=== PATIENT | male | born 1955 | race Caucasian/White ===

== ENCOUNTER 2023-11-18 13:57 | Emergency (ER) | payer MEDICARE, SELFPAY ==
[2023-11-18 14:05] VITALS: BP 128/87
--- NOTE | 2023-11-18 14:09 | ED.PDOC.TRB ---
ED Provider Triage
-
A medical screening examination has been initiated by a qualified medical provider. Based on the assessment performed at this time, it has been determined that an emergent medical condition may exist and the patient has been informed that further
medical evaluation and possible additional diagnostic testing may be needed.
HPI: This is a medical evaluation conducted in person to initiate diagnostic evaluation and provide initial therapeutics. Please see further documentation by the treating clinician.
GENERAL: Alert , in no apparent distress
EYE: No visual abnormalities.
NECK: Trachea midline
ENT: No visible abnormalities.
LUNGS: No acute respiratory distress
splinting
chest wall: right lower rib tenderness
NO ABDOMINAL TENDENRSSS
NEUROLOGICAL: Alert and oriented
SKIN: Skin intact. No visible changes.
MUSCULOSKELETAL: Moving extremities normally
PSYCH: Normal and appropriate interaction.
68-year-old male not on blood thinners and a mechanical fall x 2 3 days ago where he landed on his right ribs. He has pain with deep breathing. He does not otherwise feel pain with palpation and does not feel short of breath. He has tried
ibuprofen for pain. He has no other complaints like head, neck, abdominal, back pain. He has not had any fever.
While seated in an upright position it did not seem like the patient had abdominal wall tenderness in the right upper quadrant but he did have reproducible right lower lateral rib tenderness. Will
Initially order EKG and rib series to start.
[2023-11-18 15:54] VITALS: BP 120/74
[2023-11-18 16:00] VITALS: BP 127/82
--- NOTE | 2023-11-18 16:21 | ED.GENMED ---
History of Present Illness
General
Chief Complaint: Chest Problem
Source: patient
Time Seen by Provider: 11/18/23 16:05
History of Present Illness
History of Present Illness:
68-year-old male who states he was feeling his usual self until he fell landing on his right lower ribs area a few days ago. He was at the dog park and his dog was chasing after a rabbit which caused his fall. Then, on Saturday, while at the dog
park a large dog ran into him, causing him to again fall landing on his right side. Since that time, he reports worsening pain in the right lower rib area he denies loss of consciousness, head injury, neck pain numbness, tingling, hemoptysis,
dyspnea, fevers, chills, abdominal pain, nausea, vomiting, anorexia, or other complaints. The area is tender when he presses on it and hurts when he takes to deep breath but he does not feel breathless. He denies leg swelling, recent surgery,
smoking history, or other PE/DVT risk factors. Symptoms specifically began after the trauma. States he came here to 'just in case' make sure he did not have an actual fracture.
Past History
Past History
ED Past Medical History: Other (HIV +, history of alcohol/substance abuse)
ED Past Surgical History: Orthopedic (fusion lower spine 2017) and Other (Previous PCP pneumonia bilateral hip replacements, spinal fusion)
Social History
Tobacco: Non-smoker
Alcohol: Former
Drug: Former user
Personal: Single
Living: alone
Family History
Family History: Other (Father of coronary disease in his 60s)
Phy Exam
Physical Exam
Physical Exam:
GENERAL: Alert , in no apparent distress, extremely pleasant, nontoxic
EYE: pupils equal and reactive
NECK: Supple, no significant adenopathy.
ENT: o/p clr, mmm.
CARDIAC: Regular rate and rhythm .
LUNGS: Clear breath sounds bilaterally, no acute respiratory distress, no wheezes/rales/rhonchi. There is tenderness to palpation at the right anterior lower costal area without associated redness, skin, swelling, deformity, crepitus, or other
abnormalities
ABDOMEN: Soft, without focal tenderness, no r/g, no cvat
NEUROLOGICAL: Alert and oriented, no focal neuro deficits
SKIN: Warm and dry, skin intact.
MUSCULOSKELETAL: No edema, well perfused.
PSYCH: Normal and appropriate interaction.
Course
Orders/Labs/Results
Orders:
Orders
11/18/23 14:15
EKG [Electrocardiogram (*1)] Urgent
Reason for Study: Chest Pain
EKG- Treatment ONCE
Ribs, Right 3 View W/PA Chest [CR Ribs-right 3 Vw W/pa Chest*] Urgent
Comment:
Reason For Exam: fall
Vital Signs
Initial and Last Documented VS:
Initial Vital Signs
Temp Pulse Resp BP Pulse Ox
97.8 F 83 16 128/87 95
11/18/23 14:05 11/18/23 14:05 11/18/23 14:05 11/18/23 14:05 11/18/23 14:05
Last Documented Vital Signs
Temp Pulse Resp BP Pulse Ox
97.8 F 77 16 127/82 94
11/18/23 14:05 11/18/23 16:00 11/18/23 14:05 11/18/23 16:00 11/18/23 16:00
*Critical Care Note
Total Time (30-74mins, 75-104mins- exclusive of procedures): Not Applicable
Update Note
Update Note:
Patient presents to the Emergency Department with ___right lower costal pain after fall
Number and Complexity of Problems Addressed at the Encounter
� Chronic conditions affecting care:
� Acute Exacerbation and/or Progression of Chronic Illness:
� Differential Diagnosis includes: But not limited to rib fracture, rib contusion, pneumothorax, hemothorax, etc.
Amount and/or Complexity of Data to be Reviewed and Analyzed
� I performed an independent evaluation of and my interpretation is:
EKG: Read by me, normal sinus rhythm, LAD, no acute ischemia
CT:
Xrays: Read by radiology no fracture or other abnormalities
Laboratory Studies:
Other:
� Review of other/old records reveals:
� Clinical information was obtained by an independent historian:
� Prescriptions/Medications Considered but not given:
� Further testing considered but not performed:
Risk of Complications and/or Morbidity or Mortality of Patient Management
� Social determinants of health affecting care:
� Discussion with other providers (PCP, Hospitalists, Consultants, etc):
� Escalation of care including admission/observation vs risk of discharge considered: Highly doubt PE given mechanism of injury and reproducible pain, lack of risk factors, not tachycardic or hypoxic, etc. Discussed with patient
importance of follow-up and reasons to return to the ER.
ED Attending Note
-
Portions of this chart may have been created with voice recognition software.� Occasional wrong word or��sound alike� substitutions may have occurred due to the inherent limitations of voice recognition software.
Discharge Plan
Departure
Patient Disposition: Home (Routine Discharge)
Date of Disposition: 11/18/23
Time of Disposition: 16:22
Patient with high blood pressure during this ER visit?: Yes
Condition: Good
Discharge Problem:
Rib contusion
Instructions: Bruised Rib, BLOOD PRESSURE
Prescriptions:
No Action
multivitamin 1 EACH tablet
1 ea PO DAILY
ibuprofen 200 MG tablet
600 mg PO PRN PRN (Reason: pain)
[id number] serr [Osteo Bi-Flex (5-Loxin)] 1 EACH tablet
2 ea PO DAILY
Vitamin E
2 cap PO DAILY
prednisone 20 mg tablet
40 mg PO DAILY Qty: 10 0RF
Referrals:
Aj Maciel MD [Family Provider] - Follow up in 2-3 days
Activity Restrictions/Additional Instructions:
IF YOU DEVELOP INCREASING OR NEW PAIN, RASH, FEVER, TROUBLE BREATHING, SWELLING, BLEEDING, OR OTHER WORRISOME SIGNS, PLEASE RETURN TO THE ER IMMEDIATELY
Interventions
Interventions:
*Risk Screen - Suicide Last Done: 11/18/23 14:08
*General Assessment Last Done: 11/18/23 14:05
*Neglect/Abuse Screening Last Done: 11/18/23 14:08
Discharge Date and Time
Print Language: PALESTINIAN
== END 2023-11-18 16:42 | disposition home or self-care (01) ==
LOC: EMR 13:57
PROVIDERS: EMERGENCY PHYSICIAN Emergency Medicine; FAMILY PHYSICIAN Family Medicine
DX: S20.211A Contusion of right front wall of thorax, initial encounter (principal); R10.11 Right upper quadrant pain; W18.39XA Other fall on same level, initial encounter; Y93.89 Activity, other specified; Y92.830 Public park as the place of occurrence of the external cause; R03.0 Elevated blood-pressure reading, without diagnosis of hypertension; Z21 Asymptomatic human immunodeficiency virus [HIV] infection status; F19.11 Other psychoactive substance abuse, in remission; Z98.1 Arthrodesis status; Z87.01 Personal history of pneumonia (recurrent); Z88.2 Allergy status to sulfonamides
CPT/HCPCS: 99283; 71101; 93005

== ENCOUNTER 2024-05-04 18:24 | Emergency (ER) | payer MEDICARE, SELFPAY ==
[2024-05-04 18:49] VITALS: BP 115/81
[2024-05-04] MEDS: PERCOCET 5/325 1 TABLET PO (19:36)
[2024-05-04 19:39] VITALS: BMI 28.3
[2024-05-04] MEDS: VALIUM INJECTION 5 MG IV (21:06)
[2024-05-04 22:43] VITALS: BP 120/71
--- NOTE | 2024-05-04 23:18 | ED.MUSCINJ ---
HPI-Injury
General
Chief Complaint: Musculo-Skeletal Complaint
Source: patient
Exam Limitations: none
Time Seen by Provider: 05/04/24 18:55
Nursing documentation reviewed up to this point in time: agreed with
History of Present Illness-Injury
Is this injury a work related problem?: No
Is pt an associate of [facility],[employer] [facility]/[place] [facility]?: No
Initial Injury comments:
Patient to ED with complaint of severe right knee pain. States he was walking his dog and twisted his knee. States he heard a crack and then he fell. Denies hitting his head. Complains of pain to right knee nd right groin. Had RTKR thru [facility]
3 years ago. Brought to ED via EMS for eval.
Past History
Past History
ED Past Medical History: Other (HIV +, history of alcohol/substance abuse)
ED Past Surgical History: Orthopedic (fusion lower spine 2017) and Other (Previous PCP pneumonia bilateral hip replacements, spinal fusion)
Social History
Tobacco: Non-smoker
Alcohol: Former
Drug: Former user
Personal: Single
Living: alone
Family History
Family History: Other (Father of coronary disease in his 60s)
Review of Systems
Review of Systems
Allergies reviewed?: Yes
All Other Systems: ROS reviewed and negative except as documented in HPI and ROS
Constitutional: Reports no symptoms
ABD/GI: Reports no symptoms
Musculoskeletal: Reports joint pain (Pain to riht knee and groin.)
Skin: Reports no symptoms
Neurological: Reports no symptoms
Psychiatric: Reports no symptoms
Musculoskeletal Injury Exam
Musculoskeletal Injury Exam
Right Knee:
Pain with Movement?: Moderate
Tender to palpation?: Moderate
Soft tissue swelling?: Mild
External deformity and angulation?: None
Joint effusion?: None
Contusion?: None
Hematoma-local bleeding into tissue?: None
Strain- Sprain- Tear (Connective tissue injury)?: Moderate
Crepitus with movement?: No
Joint instability?: No
Malalignment/deformity?: No
Range of motion: Limited
Distal skin color and temperature: normal-warm & good color
Capillary Refill: normal
Normal distal neurovascular exam?: Yes
Peripheral Pulses: posterior tibial (right): 3+ and dorsalis pedis (right): 3+
Phy Exam
General Physical Exam
General Presentation: well appearing and moderate distress
General age: appears stated age
General Skin: warm and dry
General Habitus: normal
General Mental: alert
Musculoskeletal Exam
Musculoskeletal Exam: neuro vasc intact
Skin Exam
Skin Exam: normal color, warm/dry and no rash
Psychiatric Exam
Psychiatric Exam: normal mood/affect
Injury Course
Orders/Labs/Results
Orders:
Orders
05/04/24 19:25
Oxycodone/Acetaminophen [Percocet 5/325] 1 tablet PO NOW STA
Hip, Right 2-3 Views [CR Hip - RT w/wo Pel 2-3 Vw*] Urgent
Comment:
Reason For Exam: fall
Include a pelvis x-ray?: Yes
Knee, Right 4 or More Views [CR Knee- Right 4 Or More View*] Urgent
Comment:
Reason For Exam: fall
05/04/24 20:47
HYDROmorphone [Dilaudid] 1 mg IV NOW STA
05/04/24 20:51
diazePAM [Valium Injection] 5 mg IV NOW STA
05/04/24 21:14
Femur, Right 2 View [CR Femur - Right Min 2 Vw] Urgent
Comment:
Reason For Exam: fall
05/04/24 23:07
Knee Immobilizer Right-Treatme ONCE
05/04/24 23:18
Crutches-Treatment ONCE
*Critical Care Note
Total Time (30-74mins, 75-104mins- exclusive of procedures): Not Applicable
Update Note
Update Note:
Right knee prosthetic intact. Nondisplaced fx noted just above prosthesis. Dr. Woodall notified, xray sent via tiger text. Patient was placed in knee immobilizer splint and crtches provider. He will remain nonweight bearing. This was discussed
with him and he is agreeable to plan. He will follow up with ortho in the AM
ED Attending Note
-
Portions of this chart may have been created with voice recognition software.� Occasional wrong word or��sound alike� substitutions may have occurred due to the inherent limitations of voice recognition software.
Discharge Plan
Departure
Patient Disposition: Home (Routine Discharge)
Date of Disposition: 05/04/24
Time of Disposition: 23:07
Patient with high blood pressure during this ER visit?: No
Condition: Good
Covid-19: Not Applicable
Discharge Problem:
Femur fracture
Instructions: Ibuprofen, Femur fracture
Prescriptions:
New
diazepam [Valium] 2 mg tablet
2 mg PO BID PRN (Reason: muscle spasm) Qty: 4 0RF
tramadol 50 mg tablet
50 mg PO TID PRN (Reason: Pain) Qty: 10 0RF
No Action
multivitamin 1 EACH tablet
1 ea PO DAILY
ibuprofen 200 MG tablet
600 mg PO PRN PRN (Reason: pain)
[id number] serr [Osteo Bi-Flex (5-Loxin)] 1 EACH tablet
2 ea PO DAILY
Vitamin E
2 cap PO DAILY
prednisone 20 mg tablet
40 mg PO DAILY Qty: 10 0RF
Referrals:
Trevin Woodall MD [Active] - Call in 1-3 days for appt
Aj Maciel MD [Family Provider] -
Activity Restrictions/Additional Instructions:
NO WEIGHT BEARING ON YOUR RIGHT LEG.
Interventions
Interventions:
*Risk Screen - Suicide Last Done: 05/04/24 19:38
*General Assessment Last Done: 05/04/24 19:38
*Neglect/Abuse Screening Last Done: 05/04/24 19:38
ED- Fall Risk Assessment Last Done: 05/05/24 00:25
*ED COVID-19 Vaccine History Last Done: 05/04/24 19:38
*Nursing Disposition Last Done: 05/05/24 00:25
ED-Musculoskeletal Assessment Last Done: 05/04/24 19:27
Discharge Date and Time
Discharge Date/Time: 05/05/24 00:25
Print Language: PERSIAN
== END 2024-05-05 00:25 | disposition home or self-care (01) ==
LOC: EMR 18:24
PROVIDERS: EMERGENCY PHYSICIAN Emergency Medicine; FAMILY PHYSICIAN Family Medicine
DX: S72.401A Unspecified fracture of lower end of right femur, initial encounter for closed fracture (principal); X50.1XXA Overexertion from prolonged static or awkward postures, initial encounter; Z96.651 Presence of right artificial knee joint
CPT/HCPCS: 99284; 96374; 29505; 73502; 73552; 73564